=== PATIENT | female | born 2005 | race Caucasian/White ===

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

== ENCOUNTER 2024-10-07 13:30 | Outpatient (REF) | payer BC, SELFPAY ==
[2024-10-09 13:05] LABS: Chlamydia Result Negative (Negative); GC Result Negative (Negative)
== END 2024-10-07 13:31 | disposition home or self-care (01) ==
LOC: LBN 13:30
PROVIDERS: PCP Nurse Practitioner Pediatrics; Visit Provider Nurse Practitioner Pediatrics
DX: Z11.3 Encounter for screening for infections with a predominantly sexual mode of transmission (principal)
CPT/HCPCS: 80061; 87389; 87491; 87591; 86592

== ENCOUNTER 2024-10-21 02:42 | Outpatient (CLI) | payer BC, SELFPAY ==
[2024-10-21 09:01] LABS: Calculated LDL 108 mg/dL (<100); Cholesterol 209 mg/dL (<200); HDL Cholesterol 81 mg/dL (>or=50); Triglyceride 101 mg/dL (<150)
[2024-10-21 19:13] LABS: HIV-1/2 Ag & Ab Screen Negative (Negative)
[2024-10-22 11:33] LABS: Syphilis Serology (RPR) Negative (Negative)
== END 2024-10-21 02:43 | disposition home or self-care (01) ==
LOC: LBO 02:43
PROVIDERS: PCP Nurse Practitioner Pediatrics; Visit Provider Nurse Practitioner Pediatrics
DX: Z11.3 Encounter for screening for infections with a predominantly sexual mode of transmission (principal); Z13.220 Encounter for screening for lipoid disorders
CPT/HCPCS: 36415; 80061; 87389; 86592

== ENCOUNTER 2024-11-06 14:43 | Outpatient (REF) | payer BC, SELFPAY ==
[2024-11-09 12:22] LABS: Chlamydia Result Negative (Negative); GC Result Negative (Negative)
== END 2024-11-06 14:44 | disposition home or self-care (01) ==
LOC: LBN 14:43
PROVIDERS: PCP Nurse Practitioner Pediatrics; Visit Provider Obstetrics & Gynecology
DX: Z30.9 Encounter for contraceptive management, unspecified (principal)
CPT/HCPCS: 87491; 87591